=== PATIENT | female | born 1970 | race Two or more races ===

== ENCOUNTER 2019-05-10 08:40 | Outpatient (CLI) | payer OTHER | END 2019-05-10 11:06 | disposition home or self-care (01) | LOC: NUCLEAR 08:40 | DX: M15.8 Other polyosteoarthritis (principal) | CPT/HCPCS: 78315; A9503 ==

== ENCOUNTER 2020-11-15 07:56 | Emergency (ER) | payer OTHER ==
[~2020-11-15] VITALS: Ht 167.6 cm; Wt 90.7 kg
[2020-11-15] MEDS ORDERED: METOPROLOL SUCC50 MG PO (08:03)
[2020-11-15] MEDS ORDERED: CANDESARTAN CIL16 MG PO (08:03)
== END 2020-11-15 15:13 ==
LOC: ER 07:56
DX: N93.8 Other specified abnormal uterine and vaginal bleeding (principal); D25.9 Leiomyoma of uterus, unspecified